=== PATIENT | male | born 2005 | race Caucasian/White ===

== ENCOUNTER 2024-12-14 15:23 | Emergency (ER) | payer OTHER, SELFPAY ==
[2024-12-14 15:24] VITALS: BP 137/102; PULSE 100; RESP 18; TEMP 36.7; O2SAT 100; BMI 35.2
[2024-12-14 15:36] VITALS: BP 137/102; PULSE 102; O2SAT 97
--- OUTSIDE RECORDS SUMMARY | 2024-12-14 15:51 | XMS_ITS | Clinical Summary ---
Author Organization [facility] Address [address] [place] [address] Care Team Providers Care Bead Builder Name Role Phone Cisco Fela Browning APRN Primary Care Provider [phone] Allergies No known active allergies Medications ondansetron ODT (ZOFRAN-ODT) 8 MG disintegrating tablet One tablet po q 6 hours PRN nausea and vomiting 10 tablet 1 Active dicyclomine (BENTYL) 20 MG tablet 3 Active pantoprazole (PROTONIX) 20 MG EC tablet 3 Active omeprazole (priLOSEC) 20 MG capsule Take 1 capsule by mouth Daily. Active metoclopramide (REGLAN) 5 MG tablet Take 1 tablet by mouth 3 (Three) Times a Day As Needed (vomiting). 15 tablet 3 Active Family History Medical History Relation Name Comments No Known Problems Father No Known Problems Mother Relation Name Status Comments Father Mother Social History Tobacco Use Types Packs/Day Years Used Date Smoking Tobacco: Never Passive Smoke Exposure: Yes Smokeless Tobacco: Never Tobacco Cessation:Counseling Given: Not Answered Comments:PT VAPES, NICOTINE AND THC Alcohol Use Standard Drinks/Week Comments Never 0 (1 standard drink = 0.6 oz pur e alcohol) Abuse Screen Answer Date Recorded Unsafe at Home or Work/School Not on file Feels Threatened by Someone? Not on file Does Anyone Keep You from Co ntacting Others or Doint Things Outside the Home? Not on file 2023 Physical Sign of Abuse Present Not on file 0 2023 Housing Stability Answer Date Recorded Current Living Arrangements Not on file 12/12 Potentially Unsafe Housing Conditions Not on luis m e 12/23/2022 Family and Community Support Answer Dinesh e Recorded Help with Day-to-Day Activities Not on file 12/23/2022 Lonely or Isolated Not on file 12/23/2022 Employment Answer Date Recorded Do you want help finding or keeping work or a lonny b? Not on file 12/23/2022 Disabilities Answer Date Recorded Concentrating, Remembering, or Making Decisions Difficulty Not on file 12/23/2022 Doing Errands Independently Difficulty Not on fi le 12/23/2022 Education Answer Date Recorded Help with school or training? Not on file Preferred Language Not on file 12/23/2022 Sex and Gender Information Value Date Recorded Sex Assigned at Not on file Legal Sex Male 2:03 PM EDT Gender Identity Not on file Sexual Orientation Not on file Last Filed Vital Signs Vital Sign Reading Time Taken Comments Blood Pressure 140/89 06/11/2022 6:01 PM EDT Pulse 64 06/11/2022 6:01 PM EDT Temperature 36.9 C (98.4 F) 06/11/2022 5:40 PM EDT Respiratory Rate 18 06/11/2022 5:40 PM EDT Oxygen Saturation 93% 06/11/2022 6:01 PM EDT Inhaled Oxygen Concentration - - Weight 111 kg (245 lb 3.2 oz) 06/11/2022 5:40 PM EDT Height 185.4 cm (6' 1 ) 06/11/2022 5:40 PM EDT Body Mass Index 32.35 06/11/2022 5:40 PM EDT Plan of Treatment Health Maintenance Due Date Last Done Comments HPV VACCINES (1 - Male 3-dos e series) 06/25/2018 ANNUAL PHYSICAL 10/31/2018 HEPATITIS C SCREENING 10/31/2018 MENINGOCOCCAL B VACCINE (1 o f 2 - Standard) 2019 INFLUENZA VACCINE 10/12/2024 TDAP/TD VACCINES (2 - Td or Tdap) 01/17/2027 017 MENINGOCOCCAL VACCINE Aged Out 01/17/2017 No nanda davide eligible based on patient's age to complete this topic Pneumococcal Vaccine 0-49 Aged Out No longer eligible based on patient's age to complete this topic Insurance PPO Care Teams Bead Builder Relationship Specialty Start Date End Date Fela Peck APRN [id number] [facility] [address] [place] [address] PCP - General Family Medicine 11/28/20
--- OUTSIDE RECORDS SUMMARY | 2024-12-14 15:51 | XMS_ITS | Clinical Summary ---
Author Organization [facility] Address [place] [address] Care Team Providers Care Lead Developer Name Role Phone Sheryl Kirkpatrick MD Primary Care Provider [phone] Allergies No known active allergies Medications levoTHYROXINE (SYNTHROID) 75 MCG tabletIndication s:Hypothyroidism , unspecified type Take 1 tablet by mouth daily. 90 tablet 3 04/23/2024 Active Cholecalciferol (VITAMIN D3) 125 MCG (5000 UT) TABSIndications: Low vitamin D level Take 1 tablet by mouth daily. 90 tablet 04/23/2024 Active Active Problems No known active problems Immunizations Immunization Administration Dates Next Due DTaP, Unspecified 11/06/2007, 7,03/15/2006,10/06 Hep A Pediatric/Adolescent ( age less than 19) 04/05/2011,11/05/2008 Hep B Ped/Adolescent 11/02/2006,03/15/2006,10/06 Hib, Unspecified 11/05/2008, 7,03/15/2006,10/06 IPV 11/05/2008, 7,03/15/2006,10/06 Influenza Vaccine Tri (IM) 04/05/2011 MMR 11/05/2008,03/15/2006 Meningococcal Conjugate MCV4P 01/17/2017 Meningococcal MCV4, Unspecified 01/17/2017 Tdap 01/17/2017 Varicella 11/05/2008,03/15/2006 Social History Tobacco Use Types Packs/Day Years Used Date Smoking Tobacco: Every Day Smokeless Tobacco: Never Tobacco Cessation:Ready to Q uit: No; Counseling Given: No Comments:vapes Alcohol Use Standard Drinks/Week Comments No 0 (1 standard drink = 0.6 oz pur e alcohol) Sex and Gender Information Value Date Recorded Sex Assigned at Not on file Legal Sex Male 3:01 PM EDT Gender Identity Not on file Sexual Orientation Not on file 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 Not on file Not on file Not on fi le Last Filed Vital Signs Vital Sign Reading Time Taken Comments Blood Pressure 134/98 04/20/2024 9:30 AM EST Pulse 92 04/20/2024 9:30 AM EST Temperature 36.8 C (98.3 F) 04/20/2024 9:30 AM EST Respiratory Rate 19 05/12/2021 10:45 AM EST Oxygen Saturation 98% 04/20/2024 9:30 AM EST Inhaled Oxygen Concentration - - Weight 124.7 kg (275 lb) 04/20/2024 9:30 AM EST Height 182.9 cm (6') 04/20/2024 9:30 AM EST Body Mass Index 37.3 04/20/2024 9:30 AM EST Plan of Treatment Health Maintenance Due Date Last Done Comments HPV Vaccine (1 - Male 3-dose series) 06/25/2018 Annual SDOH Screening 03/14/2024 Influenza Vaccine (#1) 2024 04/05/2011 Pneumococcal Vaccines 6-49 yo Risk (1 of 2 - PCV) 04/20/2025 Postponed from 06/25/2022 (Patient Refused) Tdap/Td Vaccine >11 yo (6 - Td or Tdap) 01/17/2027 01/17/2017, 11/06/2007, 11/02/2006, Additional history exists Hepatitis B (HepB) Vaccine Completed 11/02, 03/15/2006, 2003 Haemophilus Influenzae Type B (Hib) Vaccine Completed 11/05/2008, 11/02/2006, 03/15/2006, Additional history exists Polio (IPV) Completed 11/05/2008, 10/13, 03/15/2006, Additional history exists Hepatitis A (HepA) Vaccine Completed 04/05/2011, Meningococcal ACWY Aged Out 01/17/2017, 01/17/2017 No longer eligible based on patient's age to complete this topic Depression Screening Completed 04/20/2024 Rotavirus (RV) Vaccine Aged Out No lo nger eligible based on patient's age to complete this topic Insurance Care Teams Lead Developer Relationship Specialty Start Date End Date Sheryl Kirkpatrick MD [address] [place] [address] [place] [phone] PCP - General Family Medicine 04/20/24
--- NOTE | 2024-12-14 15:57 | ED_ITS ---
<Statement entered by Armen García MD - 12/15/24 02:03> I was consulted by the GENIA, and we discussed the complexity of the problems being addressed. I approve the treatment and management plan for this patient's care in the emergency department, thus performing a substantive portion of the medical decision making. Armen García MD Discharge Plan Disposition Patient Disposition: Home, Self-Care Condition: Good Prescriptions Prescriptions: New doxycycline monohydrate 100 mg capsule 100 mg PO BID 7 Days Qty: 14 0RF Referrals Follow up/Referrals: Provider,Ray, [Primary Care Provider, Medical] - See instructions Activity Restrictions/Add. Instructions Additional Instructions/Restrictions: Please return to the emergency department with any worsening signs or symptoms. Please take your antibiotic as prescribed. Will call you with results of your STI screening if positive. Please follow-up with your PCP in the upcoming days. Clinical Impressions Clinical Impression: Abdominal pain, Acute UTI Instructions Patient Instructions: DI for Urinary Tract Infection (UTI), DI for Acute Abdominal Pain, DI for Flank Pain Print Language Print Language: Omani Discharge ED Provider: Armen García General Adult HPI General Chief complaint: Abdominal Pain Stated complaint: abd pain, vomiting Time Seen by Provider: 12/14/24 15:38 Mode of Arrival: Ambulatory Source of Information: Patient and Relative Limitations: No Limitations History of Present Illness HPI narrative: 19-year-old male presents the emergency department with right sided pleuritic chest pain, abdominal pain and episode of nausea and vomiting that started today, he endorses left-sided side pain , as well as some right sided pleuritic chest pain that is worse with deep inspiration that occurred while he was on the job site , he presents with his mother. Patient states he has had similar symptoms like this around 2 weeks ago but they subsided, patient endorses data deficient history of elevated liver enzymes , patient denies any fever chills cough congestion, denies any overt chest pain no shortness of breath, denies any trauma or injury per history, denies any constipation diarrhea no hematuria melena hematochezia or hematemesis, patient is a current everyday tobacco user (vapes), denies alcohol or drug use initial triage vitals notable tachycardia otherwise unremarkable, patient has otherwise no real relevant past medical history takes no other medications daily at home. Dated patient history with sounds like hypothyroidism , for which patient does not take any medications for. Please note that above description of symptoms, in this electronic medical record under categorization of recalled from ER triage doctor by RN are reflective of an initial nursing assessment, however, is not reflective of my full history and physical exam that was personally taken and clarified. Consequentially, this preceding description of symptoms, which may include the patient's categorized chief complaint in the EMR, do not reflect my personal clinical impression, and the ultimate description of history of present illness and patient stated complaints should be deferred to this section of the note. Unless stated otherwise or congruent with this section of the note, additional signs, symptoms, or incongruence should be interpreted as inaccurate with my clinical impression. Onset (ago): hour(s) Related Data Previous Rx's ?Medication ?Instructions ?Recorded doxycycline monohydrate 100 mg 100 mg PO BID 7 days #1 4 caps 12/14/24 capsule Allergies Allergy/AdvReac Type Severity Reaction Status Date / Time No Known Allergies Allergy Verified 12/14/24 15:59 [facility] Disclaimer: The information contained in this section may have been updated after the patient was seen, as this information can be updated by other users. Social History Smoking Status: Current some day smoker alcohol intake: never current occupational status: other Travel in the last 8 weeks?: None ROS Obtained: Yes All systems reviewed & no additional complaints except as documented Physical Exam General General appearance: alert and in no apparent distress Head Head exam: atraumatic and normocephalic Eye Eye exam: Present PERRL and EOMI ENT ENT exam: Present mucous membranes moist Neck Neck exam: Present normal inspection Chest Chest inspection: Present normal inspection and symmetric chest wall rise; Absent tenderness Respiratory Respiratory exam: Present normal lung sounds bilaterally; Absent respiratory distress, wheezes or stridor Cardiovascular Cardiovascular exam: Present regular rate and normal rhythm Abdominal Exam Abdominal exam: Present soft, tenderness and Kay's sign; Absent guarding, rebound or rigidity Abdominal tenderness: Present RUQ and diffuse Extremities Exam Extremities exam: Present normal inspection Back Exam Back exam: Present CVA tenderness (L); Absent CVA tenderness (R), paraspinal tenderness or vertebral tenderness Neurological Exam Neurological exam: Present alert and oriented X3 Psychiatric Psychiatric exam: Present normal affect Skin Skin exam: Present warm and dry Medical Decision Making Medical Records Medical records reviewed: Yes I reviewed the patient's medical records. Screening: Per USPSTF and CDC recommendations, given the prevalence of disease in our region, it is our hospital?s policy to screen for HIV and viral Hepatitis for all patients aged 18 and over and those with ongoing risk factors. Jose Miguel Inquiry Pt receiving controlled substance: No Jose Miguel was queried for this patient: No Vital Signs: 12/14/24 15:24 12/14/24 15:36 12/14/24 16:30 Temperature 98.0 F Temperature Source Oral Pulse Rate 102 H 90 Pulse Rate [Radial] 100 H Respiratory Rate 18 Blood Pressure 137/102 H 143/85 H Blood Pressure [Left Arm] 137/102 H Blood Pressure Mean [Left Arm] 113 Blood Pressure Source [Left Arm] Automatic Cuff Blood Pressure Position [Left Arm] Sitting 02 Sat by Pulse Oximetry 100 97 97 Oxygen Delivery Method Room Air Lab Data Lab results reviewed: Yes I reviewed the patient's lab results. Lab Results 12/14/24 15:33: Urine Color Yellow, Urine Appearance Clear, Urine pH 6.0, Ur Specific [place] 1.015, Urine Protein 2+ A, Urine Glucose (UA) Negative, Urine Ketones Negative, Urine Blood Trace-i, Urine Nitrate Negative, Urine Bilirubin Negative, Urine Urobilinogen 0.2, Ur Leukocyte Esterase Negative, Urine RBC 5- 10, Urine WBC 20-50, Ur Squamous Epith Cells 5-10, Urine Bacteria 2+, Urine Mucus 3+ 12/14/24 15:37: WBC 11.3 H, RBC 5.23, Hgb 15.7, Hct 45.8, MCV 87.6, MCH 30.0, MCHC 34.3, RDW 13.2, Plt Count 322, MPV 9.1, Neut % (Auto) 63.9, Lymph % (Auto) 23.4, [place] % (Auto) 9.8 H, Eos % (Auto) 2.1, Baso % (Auto) 0.4, Neut # (Auto) 7.2, Lymph # (Auto) 2.6, [place] # (Auto) 1.1 H, Eos # (Auto) 0.2, Baso # (Auto) 0.1, D-Dimer 0.42, Sodium 143, Potassium 3.8, Chloride 102, Carbon Dioxide 27, [place] 17.8 H, BUN 9, Creatinine 1.20, Estimated Creat Clear 162, Estimated GFR 76, Est GFR ( Amer) 92, Glucose 104 H, Lactate 1.6, Calcium 10.4 H, Magnesium 1.9, Total Bilirubin 0.7, AST 41, ALT 61, Alkaline Phosphatase 70, Troponin I < 0.01, NT-Pro-B Natriuret Pep < 20.0, Total Protein 7.5, Albumin 4.8, Globulin 2.7, Albumin/Globulin Ratio 1.8, Lipase 91, HCV Ab NESTOR w/Rflx PCR Qn Negative, HIV Ag/Ab Combo Qual Negative 12/14/24 16:02: Urine Opiates Screen Negative, Urine Methadone Screen Negative, Ur Barbituates Screen Negative, Ur Phencyclidine Scrn Negative, Ur Amphetamines Screen Negative, U Benzodiazepines Scrn Negative, Urine Cocaine Screen Negative, U Marijuana (THC) Screen Negative 12/14/24 15:37 12/14/24 15:37 Orders (Tests/Meds): ED MEDICATIONS Generic Name Dose Route Start Last Admin Trade Name Freq PRN Reason Stop Dose Admin Ceftriaxone Sodium 500 mg 12/14/24 18:03 Ceftriaxone 500mg Vial IV 12/14/24 18:04 ONCE ONE Lidocaine HCl 0 ml 12/14/24 18:03 Lidocaine 1% 5ml Pf Vial IM 12/14/24 18:04 ONCE ONE Discontinued Medications Generic Name Dose Route Start Last Admin Trade Name Freq PRN Reason Stop Dose Admin Iopamidol 75 ml 12/14/24 16:20 12/14/24 16:21 Iopamidol-370 (76%);100ml Bottle IV 12/14/24 16:21 75 ml ONCE ONE Administration Ketorolac Tromethamine 15 mg 12/14/24 16:03 12/14/24 16:13 Ketorolac 30mg/Ml Vial IV 12/14/24 16:04 15 mg ONCE ONE Administration Ondansetron HCl 4 mg 12/14/24 16:02 12/14/24 16:13 Ondansetron 4mg/2ml Vial IV 12/14/24 16:03 4 mg ONCE ONE Administration Sodium Chloride 10 ml 12/14/24 16:20 12/14/24 16:21 Sodium Chloride 0.9% 10ml Syr (Rad Only) IV 12/14/24 16:21 10 ml ONCE ONE Administration ORDERS Category Date Time Status CT abdomen pelvis w con Stat Cat Scan 12/14/24 16:02 Completed XR chest portable Stat Exams 12/14/24 16:02 Completed Complete Blood Count Auto Diff Stat Lab 12/14/24 15:37 Completed Comprehensive Metabolic Panel Stat Lab 12/14/24 15:37 Completed D-Dimer Stat Lab 12/14/24 15:37 Completed Drug Screen,Urine Stat Lab 12/14/24 16:02 Completed HIV Combo Stat Lab 12/14/24 15:37 Completed Hepatitis C Ab Qual. W/ RFX Stat Lab 12/14/24 15:37 Completed Lactic Acid Stat Lab 12/14/24 15:37 Completed Lipase Stat Lab 12/14/24 15:37 Completed Magnesium Stat Lab 12/14/24 15:37 Completed NT Pro Brain Natriuretic Pep. Stat Lab 12/14/24 15:37 Completed Troponin I Q3H Lab 12/14/24 19:15 Ordered Troponin I Q3H Lab 12/14/24 22:15 Ordered Troponin I Stat Lab 12/14/24 15:37 Completed Urinalysis and Microscopic Stat Lab 12/14/24 15:33 Completed Urine Culture Stat Micro 12/14/24 15:33 Received Medical Decision Narrative: 19-year-old male presents to the emergency department with multiple complaints, see HPI for detailed past medical history, differential diagnose include but not limited to cardiac arrhythmia, electrolyte disturbance, ACS, costochondritis, pneumonia, PE, cholecystitis, cholelithiasis, choledocholithiasis, bowel obstruction, ileitis, colitis, constipation, appendicitis, pancreatitis, diverticulitis, acute UTI, acute pyelonephritis, nephrolithiasis, ureterolithiasis among others. I discussed this patient's case with the attending physician Dr. García Will obtain basic laboratory studies, EKG, chest x-ray, CT and pelvis with contrast, D-dimer UDS lactic acid lipase level magnesium proBNP, troponin urinalysis, will give 15 mg IV Toradol for pain and 4 mg of Zofran for nausea. CBC is notable for mild leukocytosis at 11.3 otherwise unremarkable D-dimer is 0.42, thus ruling out VTE/PE CMP is noted for mild hypercalcemia 10.4 otherwise unremarkable CMP, no transaminitis, lipase within normal limits. UA is notable for 2+ proteinuria, negative ketonuria, trace hematuria, negative nitrites, negative leukocyte esterase. Troponin and proBNP within normal limits, no lactic acidosis UDS negative Microscopic analysis of the urine is 5-10 RBCs 20-50 WBCs, 5-10 squamous epithelial cells 2+ urine bacteria and 3+ urine mucus I reviewed the patient's CT abdomen pelvis with contrast along the course of the radiologic report no acute findings. Reexamination of the patient at approximately 6 PM, discussed all results with the patient at the bedside, patient does tell me that the girl has medicine with did have an STI about 3 weeks ago . Patient would like to be tested for STIs, however we will treat patient prophylactically with 500 mg IM ceftriaxone, as well as doxycycline 100 mg p.o. twice daily 7 days. Patient was given strict ED return precautions. Patient voiced understanding and agreement with current treatment plan/discharge plan. Will call with results of GC/chlamydia. Critical Care Critical Care Time Critical Care Time: No
--- NOTE | 2024-12-14 16:02 | XR_ITS ---
PROCEDURE INFORMATION: Exam: XR Chest Exam date and time: 12/14/2024 4:13 PM Age: 19 years old Clinical indication: Pain; Shortness of breath; Right-sided; Additional info: Shortness of air pleuritic right-sided chest pain. Standing pa projection TECHNIQUE: Imaging protocol: Radiologic exam of the chest. Views: 1 view. COMPARISON: CR XR CHEST PORTABLE 12/14/2024 4:13 PM FINDINGS: Lungs: No consolidation or pulmonary edema. Pleural spaces: No pleural effusion. No pneumothorax. Heart/Mediastinum: The cardiomediastinal silhouette is not enlarged. Bones/joints: Visualized bones demonstrate no acute abnormality. IMPRESSION: No acute abnormality is identified.
--- NOTE | 2024-12-14 16:02 | CT_ITS ---
PROCEDURE INFORMATION: Exam: CT Abdomen And Pelvis With Contrast Exam date and time: 12/14/2024 4:23 PM Age: 19 years old Clinical indication: Other: Ruq pain, left flank pain, n/v TECHNIQUE: Imaging protocol: Computed tomography of the abdomen and pelvis with contrast. Radiation optimization: All CT scans at this facility use at least one of these dose optimization techniques: automated exposure control; mA and/or kV adjustment per patient size (includes targeted exams where dose is matched to clinical indication); or iterative reconstruction. Contrast material: ISOVUE; Contrast volume: 75 ml; Contrast route: IV; COMPARISON: CR XR CHEST PORTABLE 12/14/2024 4:13 PM FINDINGS: Lungs: Visualized lung bases demonstrate no acute abnormality. Liver: No focal liver lesion is identified. Gallbladder and biliary ducts: No visualized gallstones (not all gallstones are visible via CT). No wall thickening or surrounding inflammation. No bile duct dilation. Pancreas: No peripancreatic inflammatory change or significant pancreatic duct dilation. Spleen: Splenic size is within normal limits. No focal splenic lesion is identified. Accessory splenule. Calcified granulomas. Adrenal glands: The adrenal glands are unremarkable. Kidneys and ureters: The kidneys enhance symmetrically. No hydronephrosis. No renal perfusion defects or perinephric inflammation. No stones in the kidneys or ureters. Stomach and bowel: No gastric obstruction. No focal gastric wall thickening or surrounding inflammation. No small bowel obstruction or acute inflammatory change. The colon is not obstructed. Mild diverticulosis along the proximal sigmoid colon (coronal image 25) without evidence of acute diverticulitis. Appendix: The appendix is identified. No evidence of acute appendicitis. Intraperitoneal space: No free fluid or free air. Vasculature: The abdominal aorta is nonaneurysmal. Lymph nodes: Unremarkable. No enlarged lymph nodes. Urinary bladder: Unremarkable. Reproductive: Unremarkable as visualized. Bones/joints: No acute fracture is identified. Presumably chronic widening of the pubic symphysis of uncertain etiology. No widening of the sacroiliac joints. No erosive change. Soft tissues: Small fat containing umbilical hernia. IMPRESSION: No acute findings.
[2024-12-14 16:10] LABS: Hematocrit 45.8 % (42.0-52.0); Hemoglobin 15.7 g/dL (14.1-18.0); Immature Granulocytes % 0.4 %; Mean Corpuscular HGB Conc 34.3 g/dL (31.8-35.4); Mean Corpuscular Hemoglobin 30.0 pg (27.0-31.2); Mean Corpuscular Volume 87.6 fl (80-94); Nucleated Red Blood Cells % 0 %; Platelet Count 322 K/mm3 (142-424); Red Blood Count 5.23 M/mm3 (4.60-6.20); Red Cell Distribution Width-SD 42.2 fL; White Blood Count 11.3 K/mm3 (4.8-10.8)
[2024-12-14 16:11] LABS: Microscopic, Urine URINE MICROSCOPIC (MICROSCOPIC)
[2024-12-14] MEDS: ONDANSETRON 4MG/2ML VIAL 4 MG IV (16:13)
[2024-12-14] MEDS: KETOROLAC 30MG/ML VIAL 15 MG IV (16:13)
[2024-12-14 16:17] LABS: Bilirubin,Urine Negative (Negative); Color,Urine YELLOW (Yellow); Glucose,Urine (UA) Negative (Negative); Ketones,Urine Negative (Negative); Leukocyte Esterase,Urine Negative (Negative); PH,Urine 6.0 (5.0-8.5); Protein,Urine 2+ (Negative); Specific Gravity, Urine 1.015 (1.005-1.030); Urobilinogen,Urine 0.2 EU/dl (0.2)
[2024-12-14 16:21] LABS: Alanine Aminotransferase 61 U/L (12-78); Albumin Level 4.8 g/dl (3.5-5.0); Albumin/Globulin Ratio 1.8 (1.1-1.8); Alkaline Phosphatase 70 U/L (38-126); Anion Gap 17.8 mEq/L (5-15); Aspartate Amino Transferase 41 U/L (17-59); Bilirubin,Total 0.7 mg/dl (0.2-1.3); Blood Urea Nitrogen 9 mg/dl (9-20); Calcium 10.4 mg/dl (8.4-10.2); Carbon Dioxide 27 mmol/L (22.0-30.0); Chloride 102 mmol/L (98-107); Creatinine Clearance Estimated 162 mL/min (50-200); Creatinine,Serum 1.20 mg/dl (0.66-1.25); Estimated Glomerular Filt Rate 76 ml/min (>60); GFR (African American) 92 ML/MIN (>60); Globulin 2.7 g/dL (1.3-3.2); Glucose 104 mg/dl (74-100); Lipase 91 U/L (23-300); Magnesium 1.9 mg/dl (1.6-2.3); Potassium 3.8 mmoL/L (3.5-5.1); Sodium 143 mmol/L (136-145); Total Protein,Serum 7.5 g/dl (6.3-8.2)
[2024-12-14] MEDS: IOPAMIDOL-370 (76%);100ML BOTTLE 75 ML IV (16:21)
[2024-12-14] MEDS: SODIUM CHLORIDE 0.9% 10ML SYR (RAD ONLY) 10 ML IV (16:21)
[2024-12-14 16:25] LABS: D-Dimer 0.42 ug/mL (0.0-0.5)
[2024-12-14 16:30] VITALS: BP 143/85; PULSE 90; O2SAT 97
--- NOTE | 2024-12-14 16:32 | ECG_ITS ---
APPROVED REPORT Exam: Resting ECG HR:96 bpm ECG Measurements Heart Rate 96 AXES AK 157 P 61 QRSd 98 QRS 64 QT 338 T 44 QTc 391 Conclusion SINUS RHYTHM POSSIBLE LEFT ATRIAL ENLARGEMENT [-0.1mV P-WAVE IN V1/V2] BORDERLINE ECG UNCONFIRMED REPORT Electronically signed by : LEEANNE WALSH, 12/15/2024 05:39:27
[2024-12-14 16:35] LABS: NT Pro Brain Natriuretic Pep. < 20.0 pg/mL (0-125); Troponin I < 0.01 ng/ml (0.00-0.034)
[2024-12-14 16:38] LABS: Amphetamine/Metha Screen,Urine Negative ng/ml (<1000)
[2024-12-14 16:39] LABS: Barbiturates Screen,Urine Negative ng/ml (<200); Benzodiazepines Screen,Urine Negative ng/ml (<200)
[2024-12-14 16:41] LABS: Methadone Screen,Urine Negative ng/ml (<300)
[2024-12-14 16:42] LABS: Opiate Screen,Urine Negative ng/ml (<300)
[2024-12-14 17:00] VITALS: BP 129/79; PULSE 89; O2SAT 95
[2024-12-14 17:09] LABS: Hepatitis C Ab Qual. W/ RFX NEGATIVE (Negative)
[2024-12-14 17:14] LABS: Phencyclidine Screen,Urine Negative ng/ml (<25)
[2024-12-14 17:18] LABS: Bacteria,Urine 2+ /lpf; Mucus,Urine 3+ /lpf; WBC,Urine 20-50 #/hpf (0-3)
[2024-12-14 17:30] VITALS: BP 131/79; PULSE 83; O2SAT 98
--- NOTE | 2024-12-14 17:38 | PC.NURSE ---
PT AND FAMILY UPDATED ON POC. NO NEEDS AT THIS TIME. CALL LIGHT WITHIN REACH. REPORTS PAIN IMPROVED AFTER MEDICATION
[2024-12-14] MEDS: LIDOCAINE 1% 5ML PF VIAL IM (18:15)
[2024-12-14 18:26] VITALS: BP 150/102; PULSE 98; RESP 18; TEMP 36.8; O2SAT 98
--- NOTE | 2024-12-15 10:55 | PC.NURSE ---
STI results reviewed by Dr. Landrum. Advised no change in treatment and to call patient and inform of test results and to contact any partners he has been with and inform of test of results. Attempted to contact patient, no answer, left message to return call.
--- NOTE | 2024-12-15 11:01 | PC.NURSE ---
Patient returned phone call regarding STI test results, went over them with patient, he verbalized understanding.
== END 2024-12-14 18:36 | disposition home or self-care (01) ==
PROVIDERS: Physician Assistant; Emergency Provider Student in an Organized Health Care Education/Training Program
DX: R10.84 Generalized abdominal pain (principal); N39.0 Urinary tract infection, site not specified; A56.00 Chlamydial infection of lower genitourinary tract, unspecified; R11.2 Nausea with vomiting, unspecified
CPT/HCPCS: 71045; 74177; 80053; 80307; 81001; 83605; 83690; 83735; 83880; 84484; 85025; 85378; 86803; 87086; 87389; 87491; 87591; 87661; 93005; 96374; 96375; 99285; J0696; J1885; J2003; J2405; Q9967